=== PATIENT | female | born 1955 ===

== ENCOUNTER 2023-07-05 05:15 | Day surgery (SDC) | payer OTHER ==
[~2023-07-05 05:15] MED LIST: LOSARTAN POTASSI1 GM MC
[2023-07-05] MEDS ORDERED: METRONIDAZOLE/SODIUM CHLORIDE 500 MG/100 ML PIGGYBACK IV ONE (09:00)
[2023-07-05] MEDS ORDERED: POVIDONE-IODINE 118 ML BOTT TOP ONE (09:00)
[2023-07-05] MEDS ORDERED: CEFTRIAXONE SODIUM 2,000 MG VIAL ONE (09:00)
[2023-07-05] MEDS ORDERED: LIDOCAINE HCL 1%/EPINEPHRINE 20ML VIAL IJ ONE (09:00)
[2023-07-05] MEDS ORDERED: HEMOSTATIC MATRIX 1 KIT KIT TOP ONE (09:01)
[2023-07-05] MEDS ORDERED: DIBUCAINE 15 GM OINT..GM. TUBE ONE (09:01)
[2023-07-05] MEDS ORDERED: DIBUCAINE 15 GM OINT..GM. TUBE RECTAL SCH (09:45)
[2023-07-05] MEDS ORDERED: METRONIDAZOLE/SODIUM CHLORIDE 500 MG/100 ML PIGGYBACK IV SCH (09:45)
[2023-07-05] MEDS ORDERED: CEFTRIAXONE SODIUM 2,000 MG VIAL IV SCH (09:45)
[2023-07-05] MEDS ORDERED: BUPIVACAINE HCL 30 ML VIAL IJ SCH (09:45)
[2023-07-05] MEDS ORDERED: HEMOSTATIC MATRIX 1 KIT KIT TOP SCH (09:45)
[2023-07-05] MEDS ORDERED: LIDOCAINE HCL 1%/EPINEPHRINE 20ML VIAL IJ SCH (09:45)
[2023-07-05] MEDS ORDERED: POVIDONE-IODINE 118 ML BOTT TOP SCH (09:45)
== END 2023-07-05 16:30 | disposition home or self-care (01) ==
LOC: CIR.AMB 05:15
PROVIDERS: ATTEND Colon & Rectal Surgery
DX: K62.1 Rectal polyp (principal); D12.9 Benign neoplasm of anus and anal canal; K62.89 Other specified diseases of anus and rectum